=== PATIENT | male | born 1990 ===

== ENCOUNTER 2025-04-06 21:55 | Emergency (ER) | payer SELFPAY ==
[2025-04-06 22:07] VITALS: BP 147/82; PULSE 104; RESP 18; TEMP 37.6; O2SAT 99
--- NOTE | 2025-04-06 22:55 | PC.NURSE ---
Patient seen walking out of ED exit and getting into a vehicle in the [place] [address]. NAD at this time.
--- OUTSIDE RECORDS SUMMARY | 2025-04-06 23:05 | XMS_ITS | Continuity of Care Document ---
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 Name Role Phone Dinh Lawrence MD Unavailable Unavailable Allergies, Adverse Reactions, Alerts Substance Reaction Status Criticality iodine Unknown Active No Information Medications Medication Instructions Dosage Effective Dates (start - stop) Status Comments Mobic 15 mg tablet take 1 tablet by oral route every day - Active tramadol 50 mg tablet take 1 tablet by oral route every 4 - 6 hours as needed for pain 50 MG - Active Percocet 7.5 mg-325 mg tablet take 1 tablet by oral route every 4 - 6 hours as needed for pain 1 tablet - No Longer Active Quantity medically necessary for postoperative pain Mobic 15 mg tablet take 1 tablet by oral route every day - No Longer Active promethazine 12.5 mg tablet take 1 tablet (12.5MG) by oral route every 4-6 hours with pain medicine as needed for nausea - No Longer Active Procedures Procedure Date Est. Patient Level 4 Est. Patient Level 3 Est. Patient Level 3 Global/Post-op Global/Post-op Medical Report Review Knee 1 0r 2 Views Global/Post-op Arthroscopically Aided Anterior - 020 Arthroscopy Knee W/meniscus Repair Arthro Robinson Abrasion Arthropl Knee Knee arthroscopy/repair ligament 2019 Knee arthroscopy/arthroplasty 0 Est. Patient Level 3 MRI Lower Extremity Joint No Contrast Ju Crutches, Aluminum Knee 3 Views New Patient Ov Level 4 Advance Directives Directive Yes / No Effective Date File Name No Information Encounters Encounter Description Practice Location Reason(s) For Visit Diagnoses Date Provider Providers Copied on Encounter Est. Patient Level 4 [facility], [address] [place] [address], [place], [place], [id number], [place] tel:[phone] [facility] Sprain of anterior cruciate ligament of left knee, subs 1 Melinda Tao. [address] [place] [address], [id number] , [place]. tel:[phone] Referring Provider: Dinh Varma, [address] [place] [address], [address] . tel:[phone] Est. Patient Level 3 [facility], [address] [place] [address], [place], [place], [id number], [place] tel:[phone] [facility] Complex tear of medial mensc, current injury, l knee, subsSprain of anterior cruciate ligament of left knee, subs Jan-- 1 Gato Jackson. [address] [place] [address], [address], [place], [address], [place]. tel:[phone] Referring Provider: Dinh Varma, [address] [place] [address], [id number] . tel:[phone] Est. Patient Level 3 [facility], [address] [place] [address], [place], [place], [id number], [place] tel:[phone] [facility] tear of medial mensc, current injury, l knee, subs Jul- 0 Melinda Tao. [address] [place] [address], [id number] , [place]. [phone] Referring Provider: Dinh Varma, [address] [place] [address], [id number] . tel:[phone] [facility], [address] [place] [address], [place], [place], [id number], [place] tel:[phone] [facility] tear of medial mensc, current injury, l knee, subsSprain of anterior cruciate ligament of left knee, subs Jun- 0 Brezina PA-C Renetta. [address] [place] [address], [address], [place], [address], [place]. tel:[phone] Referring Provider: Dinh Varma, [address] [place] [address], [id number] . tel:[phone] [facility], [address] [place] [address], [place], [place], [id number], [place] tel:[phone] [facility] tear of medial mensc, current injury, l knee, subs 0 Brezina PA-C Renetta. [address] [place] [address], [facility] [address], [place], [address], [place]. tel:[phone] Referring Provider: Dinh Varma, [address] [place] [address], [place], [address] . tel:[phone] [facility], [address] [place] [address], [place], [place], [id number], [place] tel:[phone] [facility] No Information 0 Melinda Tao. [address] [place] [address], [id number] , [place]. tel:[phone] Referring Provider: Dinh Varma, [address] [place] [address], [address] . tel:[phone] [facility], [address] [place] [address], [id number], [place] tel:[phone] [facility] Sprain of anterior cruciate ligament of left knee, subsComplex tear of medial mensc, current injury, l knee, subs 0 0 Brezina PA-C Renetta. [address] [place] [address], [facility] [address], [place], [address], [place]. tel:[phone] Referring Provider: Dinh Varma, [address] [place] [address], [address] . tel:[phone] [facility], [address] [place] [address], [place], [place], [id number], [place] tel:[phone] [facility] No Information 0 Melinda Tao. [address] [place] [address], [place], [place], [id number] , [place]. tel:[phone] Referring Provider: Dinh Varma, [address] [place] [address], [address] . tel:[phone] [facility], [address] [place] [address], [place], [place], [id number], [place] tel:[phone] [facility] No Information 0 Michael Almanza. [address] [place] [address], [id number] , [place]. tel:[phone] Referring Provider: Dinh Varma, [address] [place] [address], [place], [address] . tel:[phone] Est. Patient Level 3 [facility], [address] [place] [address], [place], [place], [id number], [place] tel:[phone] [facility] Sprain of anterior cruciate ligament of left knee, initComplex tear of medial mensc, current injury, l knee, init 0 Gato Jackson. [address] [place] [address], [facility] [address], [place], [address], [place]. tel:[phone] Referring Provider: Dinh Varma, [address] [place] [address], [address] . tel:[phone] [facility], [address] [place] [address], [place], [place], [id number], [place] tel:[phone] [facility] Tears of meniscus and anterior cruciate ligament of left knee, subsequent encounter ^Sprain of anterior cruciate ligament of left knee, subsequent encounter 0 Melinda Tao. [address] [place] [address], [id number] , . tel:[phone] Referring Provider: Dinh Varma, [address] [place] [address], [address] . tel:[phone] [facility], [address] [place] [address], [id number], tel:[phone] [facility] No Information 0 Melinda Tao. [address] [place] [address], [id number] , . tel:[phone] Referring Provider: Dinh Vamra, [address] [place] [address], [address] . tel:[phone] New Patient Ov Level 4 [facility], [address] [place] [address], [id number], tel:[phone] [facility] Varus deformity, not elsewhere classified, left kneeOther specified injuries of left lower leg, init encntr 0 Melinda Tao. [address] [place] [address], [id number] , . tel:[phone] Referring Provider: Dinh Varma, [address] [place] [address], [address] . tel:[phone] Family History Family Member Type Diagnosis Age At Onset Problem (finding) Family history of asthm a Problem (finding) Family history of migra ine Problem (finding) Family history of hyper tension Problem (finding) Family history of Arthr itis Payers Payer name Insurance type Covered democrat ID [id number] Social History Type Description Quantity Date Captured Comments Alcohol Use Details Unknown Caffeine Use Details Unknown Tobacco Use Status No Information Smoking Status No Information Sex Male Chief Complaint And Reason For Visit No Information Reason For Referral Reason For Referral No Information Plan Of Treatment Date Type Action Status Future Order: Radiology Order XL -KNEE LT-AP/LAT ([id number]), Appointment on: , Sent on: Sent Future Order: Radiology Order MR I Lower Extremity Joint No Contrast ([id number]), Appointment on: , Sent on: Sent Future Order: Radiology Order Pl umb/Lt Lat/Ruddy HS ([id number]), Appointment on: , Sent on: Sent History Of Present Illness Encounter Date Complaint History Of Prese nt Illness No Information Functional Status Date Functional Assessmen t No Information Instructions Date Instruction Additional Infor mation No Information Assessments Type Assessment Date No Information Patient Care Teams Name Effective Dates (start - stop) Status Members No Information
--- OUTSIDE RECORDS SUMMARY | 2025-04-06 23:05 | XMS_ITS | Continuity of Care Document ---
Author Organization [facility] Address [address] [facility] [place] [address] Phone Care Team Providers Care Social Group Worker Name Role Phone Salina Gu MD Unavailable Unavailable Procedures Procedure Date GENERAL HEALTH SCREEN PANEL UV-ASSAY BLOOD LDH ENZYME ASSAY FERRITIN ASSAY SERUM IRON SERUM IRON BINDING TEST AUTOMATED WITH MICROSCOPY Inj. fe derisomaltose 10 mg (PT STOCK) O OFFICE/OUTPATIENT VISIT, NEW ELECTROCARDIOGRAM REPORT Advance Directives Directive Yes / No Effective Date File Name No Information Encounters Encounter Description Practice Location Reason(s) For Visit Diagnoses Date Provider Providers Copied on Encounter [facility], [address] [facility] [facility] [address] [place], [address], [place] tel: [phone] [facility] No Information 3 Brittanie Downing. [address] [place], [address], [place]. tel:[phone] Referring Provider: [place], [address] . tel:[phone] [facility], [address] [facility] [facility] [address] [place], [address], [place] tel: [phone] [facility] ONCMIND Iron deficiency anemia, unspecified 3 Brittanie Downing. [address] [place], [address], [place]. [phone] Referring Provider: Deborah Frias, [address], [place], [address] . tel:[phone] OFFICE/OUTPA TIENT VISIT, [facility], [facility], [address], [place], [address], [place] tel: [phone] [facility] ONCMIND Iron deficiency anemia, unspecifiedVitami n B12 deficiency anemia, unspecifiedRefrac tory anemia, unspecifiedAnemia , unspecifiedElevat ed white blood cell count, unspecifiedThromb ocytosis, unspecified 3 Leroy Flavia. [address], [place], [id number], [place]. tel:[phone] Referring Provider: Deborah Frias, [address], [place], [address] . tel:[phone] [email or web address] [facility], [address] [address], [place], [id number] , [place] tel: [phone] [facility] No Information 0 Lizeth Cardenas. [address] [place], [place], [id number], [place]. tel:[phone] Family History Family Member Type Diagnosis Age At Onset No Information Payers Payer name Insurance type Covered democrat ID Authoriza tiefra(s) [facility] Claims [id number] Social History Type Description Quantity Date Captured Comments Sex Male Smoking Status No Information Chief Complaint And Reason For Visit No Information Reason For Referral Reason For Referral No Information History Of Present Illness Encounter Date Complaint History Of Prese nt Illness No Information Functional Status Date Functional Assessmen t No Information Instructions Date Instruction Additional Infor mation No Information Assessments Type Assessment Date No Information Patient Care Teams Name Effective Dates (start - stop) Status Members No Information
== END 2025-04-06 22:55 | disposition left against medical advice (07) ==
DX: R42 Dizziness and giddiness (principal)
CPT/HCPCS: 99199